=== PATIENT | male | born 1985 | race Caucasian/White ===

== ENCOUNTER 2017-11-23 10:49 | Emergency (ER) | payer SELFPAY ==
[~2017-11-23] VITALS: Ht 180.3 cm; Wt 684.5 kg
[2017-11-23] MEDS ORDERED: ZYRTEC10 MG PO (11:09)
[2017-11-23] MEDS ORDERED: ZOFRAN ODT4 MG SL (11:09)
== END 2017-11-23 11:13 | disposition home or self-care (01) ==
LOC: ED 10:49
DX: B34.9 Viral infection, unspecified (principal)